=== PATIENT | male | born 1995 | race Caucasian/White ===

== ENCOUNTER → 2016-08-19 | Outpatient (CLI) | payer BC, MEDICAID ==
[~2016-08-19] MED LIST: CALCIUM600 MG PO; CLEOCIN T PO; COLACE100 MG PO; LAXATIVE5 M1 PO; NEURONTIN300 MG PO; NORCO 5-325 MG1 TAB PO; PERI-COLACE TA1 EACH PO; PROPRANOLOL HCL10 MG PO; SENOKOT S (S1 TABLET; VALTREX1000 MG PO; VITAMIN C500 M1 PO; VITAMIN D2000 UNI1 PO
== END | disposition disaster alternative care site (69) ==
LOC: GRAD 13:00
DX: N31.9 Neuromuscular dysfunction of bladder, unspecified (principal); N32.89 Other specified disorders of bladder